=== PATIENT | male | born 1995 | race Caucasian/White ===

== ENCOUNTER 2025-06-15 21:19 | Inpatient (IN) | payer MEDICAID ==
[~2025-06-15] VITALS: Ht 177.8 cm; Wt 51.7 kg
[2025-06-15 21:22] VITALS: O2SAT 99
[2025-06-15 22:23] LABS: HEMATOCRIT. 40.9 % (42.0-52.0); HEMOGLOBIN. 13.7 g/dL (14.0-18.0); MEAN PLATELET VOLUME 7.3 fl (7.4-10.4); PLATELET 238 x1000/uL (130-400); RED BLOOD CELL COUNT 4.37 mill/uL (4.7-6.1); RED CELL DISTRIBUTION WIDTH 15.4 % (11.6-14.6)
[2025-06-15] MEDS: LORAZEPAM 2MG/ML UD SYRINGE IV SCH (22:29)
[2025-06-15] MEDS: ONDANSETRON HCL 4MG/2ML INJ IV ONE (22:29)
[2025-06-15] MEDS: SODIUM CHLORIDE 0.9% 1,000 ML IV ONE (22:30)
[2025-06-15 22:47] LABS: CREATININE 0.8 mg/dL (0.6-1.3); ETHANOL BLOOD 197 mg/dL (<10); UREA NITROGEN BLOOD 6 mg/dL (9-23)
[2025-06-15 22:48] LABS: PROTEIN TOTAL 7.3 g/dL (6.0-8.3)
[2025-06-15 22:49] LABS: ASPARTATE AMINOTRANSFERASE 109 IU/L (<34); BILIRUBIN DIRECT 0.2 mg/dL (<=3.0); BILIRUBIN TOTAL 0.5 mg/dL (0.1-1.0)
[2025-06-16] MEDS: FOLIC ACID 1 MG, THIAMINE HCL 100 MG, MVI, ADULT NO.1 10 ML in DEXTROSE 5% WATER 1,000 ML IV ONE (02:00)
[2025-06-16 04:19] VITALS: BP 103/61; PULSE 80; RESP 19; TEMP 36.5848
[2025-06-16] MEDS ORDERED: LORAZEPAM 1MG TABLET PO PRN (04:45)
[2025-06-16] MEDS: PANTOPRAZOLE 40MG DR TABLET PO SCH (06:31)
[2025-06-16] MEDS: CHLORDIAZEPOXIDE 25MG CAPSULE PO SCH (06:31)
[2025-06-16 08:00] VITALS: BP 104/65; PULSE 89; RESP 18; TEMP 37.7; O2SAT 100
[2025-06-16] MEDS ORDERED: LORAZEPAM 2MG/ML UD SYRINGE IV PRN (08:15)
[2025-06-16] MEDS ORDERED: ONDANSETRON HCL 4MG/2ML INJ IV PRN (08:15)
[2025-06-16 08:48] LABS: BAND% 2.0 % (1.0-6.0); LYMPHOCYTES % MANUAL 7.0 % (20.0-50.0); MONOCYTES % MANUAL 4.0 % (2.0-8.0); NEUTROPHILS % MANUAL 87.0 % (45.0-75.0); PLATELET ESTIMATE NORMAL
[2025-06-16] MEDS: THIAMINE HCL 100MG TABLET PO SCH (10:29)
[2025-06-16] MEDS: MULTIVITAMINS,THER W-MINERALS TABLET PO SCH (10:29)
[2025-06-16] MEDS: FOLIC ACID 1MG TABLET PO SCH (10:29)
[2025-06-16] MEDS: LEVETIRACETAM 500MG PREMIX 100 ML IV SCH (10:52)
[2025-06-16] MEDS: ACETAMINOPHEN 325MG TABLET PO PRN (10:56)
[2025-06-16 12:00] VITALS: BP 110/66; PULSE 87; RESP 18; TEMP 36.7; O2SAT 100
[2025-06-16] MEDS: SODIUM CHLORIDE 0.9% 1,000 ML IV SCH (13:30)
[2025-06-16 16:00] VITALS: BP 98/60; PULSE 70; RESP 17; TEMP 37.6; O2SAT 100
[2025-06-16 20:00] VITALS: BP 92/45; PULSE 67; RESP 20; TEMP 36.3; O2SAT 100
[2025-06-17] VITALS: BP 103/58; PULSE 62; RESP 20; TEMP 36.3; O2SAT 100
[2025-06-17 04:00] VITALS: BP 95/43; PULSE 62; RESP 19; TEMP 36.8; O2SAT 99
[2025-06-17 06:37] LABS: BASOPHILS % 0.5 % (0.0-2.0); EOSINOPHILS % 2.8 % (0.0-5.0); HEMATOCRIT. 37.1 % (42.0-52.0); HEMOGLOBIN. 12.7 g/dL (14.0-18.0); LYMPHOCYTES % 16.8 % (20.0-50.0); MEAN PLATELET VOLUME 7.8 fl (7.4-10.4); MONOCYTES % 5.5 % (2.0-8.0); NEUTROPHILS % 74.4 % (40.0-76.0); PLATELET 141 x1000/uL (130-400); RED BLOOD CELL COUNT 4.03 mill/uL (4.7-6.1); RED CELL DISTRIBUTION WIDTH 15.2 % (11.6-14.6)
[2025-06-17 06:41] LABS: CREATININE 0.7 mg/dL (0.6-1.3); UREA NITROGEN BLOOD 5 mg/dL (9-23)
[2025-06-17 08:00] VITALS: BP 111/77; PULSE 67; RESP 18; TEMP 36.8; O2SAT 94
[2025-06-17 08:50] LABS: CLARITY URINE CLEAR (CLEAR); COLOR URINE YELLOW (YELLOW); GLUCOSE URINE NEGATIVE (NEGATIVE); KETONES URINE NEGATIVE (NEGATIVE); LEUKOCYTE ESTERASE URINE NEGATIVE (NEGATIVE); NITRITE URINE NEGATIVE (NEGATIVE); OCCULT BLOOD URINE NEGATIVE (NEGATIVE); PH URINE 6.5 (4.5-8.0); PROTEIN URINE NEGATIVE (NEGATIVE); SPECIFIC GRAVITY URINE 1.014 (1.005-1.030); UROBILINOGEN URINE 1.0 E.U./dL (0.2-1.0)
[2025-06-17 09:07] LABS: *AMPHETAMINES SCREEN URINE NEGATIVE (NEGATIVE)
[2025-06-17 09:09] LABS: *BARBITURATES SCREEN URINE PRESUMPTIVE POSITIVE (NEGATIVE); *BENZODIAZEPINES SCREEN URINE PRESUMPTIVE POSITIVE (NEGATIVE); *COCAINE SCREEN URINE NEGATIVE (NEGATIVE); METHADONE URINE SCREEN NEGATIVE (NEGATIVE)
[2025-06-17 09:10] LABS: CANNABINOID URINE SCREEN NEGATIVE (NEGATIVE); ECSTASY MDMA SCREEN URINE NEGATIVE (NEGATIVE); OPIATES URINE SCREEN NEGATIVE (NEGATIVE); PHENCYCLIDINE URINE SCREEN NEGATIVE (NEGATIVE)
[2025-06-17] MEDS: PANTOPRAZOLE SODIUM 40 MG/VIAL IV SCH (09:19)
[2025-06-17] MEDS ORDERED: KEPP500 MT (10:59)
[2025-06-17 12:00] VITALS: BP 104/60; PULSE 81; RESP 18; TEMP 36.8; O2SAT 98
[2025-06-17 14:57] VITALS: BP 104/60; PULSE 81; RESP 18; TEMP 98.3
== END 2025-06-17 15:33 | disposition home or self-care (01) | DRG 53 ==
LOC: ER 21:19 → 6EST 06-16 01:26 → EDBEDREQSVC 06-16 01:43 → EDBEDREQ 06-16 01:43 → EDBEDREQDT 06-16 01:43 → EDBEDREQTM 06-16 01:43 → ENRESERV 06-16 02:36
PROVIDERS: ADMIT Internal Medicine; ATTEND Internal Medicine
DX: G40.509 Epileptic seizures related to external causes, not intractable, without status epilepticus (principal); F10.239 Alcohol dependence with withdrawal, unspecified; Z79.899 Other long term (current) drug therapy
CPT/HCPCS: 36415; 80048; 80076; 80305; 80320; 81003; 85025; 93005; 99285; J1953; J2060; J2405; J2470; J3411; J3490; J7030; J7070; G0480